=== PATIENT | female | born 1940 | race Caucasian/White ===

== ENCOUNTER 2020-08-02 08:29 | Emergency (ER) | payer MEDICARE, SELFPAY ==
[2020-08-02 08:40] VITALS: BP 141/61; PULSE 103; RESP 16; TEMP 36.9; O2SAT 99
--- NOTE | 2020-08-02 08:43 | ED.GENADULT ---
HPI - General Adult General Chief complaint: Abdominal Pain Stated complaint: pain in lower stomach Time Seen by Provider: 08/02/20 08:44 Source: patient Mode of arrival: ambulatory Limitations: no limitations History of Present Illness HPI narrative: 72-year-old female patient presents to the [facility] with complaints of abdominal pain that started yesterday. Patient states the abdominal pain started after she ate a steak sandwich yesterday and states that she did have an episode of vomiting. Patient states she has not had any pain with urination. Denies any low back pain. Denies any urgency or frequency. Patient states that she does get up in the middle the night P which is normal for her. Patient states that she does have history of incontinence. Denies any fevers, body aches or chills that she is aware of. Patient does have history of dementia as well as breast cancer. Patient denies any episodes of diarrhea. But continues to complain of some lower abdominal pain today. Related Data Home Medications Medication Instructions Recorded Confirmed Unable to Obtain Home Medications 08/02/20 08/02/20 Allergies Allergy/AdvReac Type Severity Reaction Status Date / Time No Known Allergies Allergy Verified 08/02/20 09:00 Review of Systems Review of Systems: Narrative: CONSTITUTIONAL: Denies fever, chills, or sweats. EYES: Denies visual changes, redness, or discharge. ENT: Denies rhinorrhea, congestion, sore throat, or otalgia. CARDIOVASCULAR: Denies chest pain, palpitations, or edema. RESPIRATORY: Denies cough or dyspnea. GASTROINTESTINAL: Positive abdominal pain, nausea, vomiting, denies diarrhea. GENITOURINARY: Denies dysuria or hematuria. SKIN: Denies rash or itching. MUSCULOSKELETAL: Denies back pain, joint pain, or myalgia. NEUROLOGIC: Denies headache, numbness, or weakness. PSYCHIATRIC: Denies anxiety or depression. [facility] Past Medical History Medical History (Updated 08/02/20 @ 09:12 by SUKHDEV Brito) Breast cancer Dementia Glaucoma Surgical History Surgical History (Updated 08/02/20 @ 09:04 by SUKHDEV Brito) H/O right mastectomy History of appendectomy Comments At the time of my signature I agree with nursing past medical history, surgical, social, and family history. There is no relevant family history pertinent to the presenting complaint. Exam Narrative: Exam Narrative: GENERAL: Well-appearing, well-nourished, and in no acute distress. HEAD: Normocephalic, atraumatic. EYES: PERRLA and EOMI. ENT: Nares clear, no rhinorrhea or epistaxis. Mucous membranes moist. NECK: Supple. No lymphadenopathy CHEST: Clear to auscultation. No respiratory distress. HEART: Regular rate and rhythm. No murmur heard. Normal peripheral pulses. ABDOMEN: Soft, flat, nondistended. No guarding, rebound tenderness, or rigid. Patient has tenderness to left upper, left lower, right upper and right lower as well as pain around the umbilicus on palpation. No pulsatilla masses. Bowel sounds decreased to the left lower and right lower quadrants. No organomegaly. Negative Greenfield?s sign. No periumbicial tenderness. No Supra public tenderness or distension. Good femoral pulses bilaterally. No hernia noted. No scars EXTREMITIES: Normal range of motion. No edema. SKIN: Warm, dry, no rash. NEURO: No focal deficits. Alert and oriented x3. Course Vital Signs Vital signs: Vital Signs Temperature 36.9 C 08/02/20 08:40 Pulse Rate 103 H 08/02/20 08:40 Respiratory Rate 16 08/02/20 08:40 Blood Pressure 141/61 H 08/02/20 08:40 Pulse Oximetry 99 08/02/20 08:40 Temperature 36.9 C 08/02/20 08:40 Pulse Rate 103 H 08/02/20 08:40 Respiratory Rate 16 08/02/20 08:40 Blood Pressure 141/61 H 08/02/20 08:40 Pulse Oximetry 99 08/02/20 08:40 Vital signs reviewed. Transfer Transfered to: [facility] Transportation: Other (Private vehicle with friend) Transfer rationale: Abdominal pain
== END 2020-08-02 09:10 | disposition short-term general hospital (02) ==
PROVIDERS: Emergency Provider Nurse Practitioner Family; PCP Internal Medicine
DX: R10.84 Generalized abdominal pain (principal); F03.90 Unspecified dementia, unspecified severity, without behavioral disturbance, psychotic disturbance, mood disturbance, and anxiety; H40.9 Unspecified glaucoma; Z85.3 Personal history of malignant neoplasm of breast; Z90.11 Acquired absence of right breast and nipple
CPT/HCPCS: 81003; 99212; G0463